=== PATIENT | male | born 1985 | race Caucasian/White ===

== ENCOUNTER 2018-04-03 19:06 | Inpatient (IN) | payer BC ==
[~2018-04-03] VITALS: Ht 177.8 cm; Wt 115.2 kg
[2018-04-03 19:06] VITALS: BP_SYST 200
[2018-04-03] MEDS ORDERED: PIPERACILLIN/TAZO 3.38 GM in NS 50 ML IV ONE (19:30)
[2018-04-03] MEDS ORDERED: NACL 0.9% 2,000 ML IV ONE (19:30)
[2018-04-03] MEDS ORDERED: ACETAMINOPHEN 500 MG TABLET PO ONE (19:45)
[2018-04-03] MEDS ORDERED: PIPERACILLIN/TAZOBACTAM 3.375 GM/VIAL (ZOSYN) IV ONE (20:00)
[2018-04-03 20:15] LABS: HEMATOCRIT 42.6 % (36-54); HEMOGLOBIN 14.8 g/dL (14.0-18.0); MEAN CORPUSCULAR HEMOGLOBIN 31 pg (27-31); MEAN CORPUSCULAR HGB CONC 35 % (32-36); MEAN CORPUSCULAR VOLUME 89 fL (79.0-98.0); RED BLOOD CELL COUNT(AUTO) 4.78 MIL/uL (4.2-6.2); RED CELL DISTRIBUTION WIDTH 12.3 % (9.0-15.0)
[2018-04-03 20:21] LABS: PLATELET COUNT (AUTO) 267 K/uL (130-430); WHITE BLOOD COUNT (AUTO) 20.3 K/uL (4.8-10.8)
[2018-04-03 20:25] LABS: CALCIUM 8.9 mg/dL (8.4-11.0); CREATININE 1.08 mg/dL (0.55-1.30)
[2018-04-03 20:26] LABS: PROTHROMBIN TIME 10.4 SECS (9.5-12.5)
[2018-04-03 20:28] LABS: POTASSIUM 2.8 mmol/L (3.5-5.1)
[2018-04-03 20:29] LABS: BAND % (MANUAL) 4 % (0-6); LYMPHOCYTES % (MANUAL) 13 % (20-46); TOTAL BILIRUBIN 1.6 mg/dL (0.0-1.0)
[2018-04-03 20:30] LABS: BASOPHILS % (MANUAL) 0 % (0-2); EOSINOPHILS % (MANUAL) 0 % (0-7); MONOCYTES % (MANUAL) 5 % (0-11)
[2018-04-03 20:41] LABS: BILIRUBIN,URINE 1+ (NEGATIVE); BLOOD, URINE 3+ (NEGATIVE); CLARITY/URINE CLEAR (CLEAR); COLOR,URINE AMBER (YELLOW); GLUCOSE,URINE NEGATIVE (NEGATIVE); KETONES,URINE TRACE (NEGATIVE); LEUKOCYTE ESTERASE ,URINE NEGATIVE (NEGATIVE); NITRITE, URINE NEGATIVE (NEGATIVE); PROTEIN URINE 2+ (NEGATIVE)
[2018-04-03 20:44] LABS: BACTERIA,URINE RARE /HPF (None Seen); WBC,URINE 0-3 /HPF (0-3)
[2018-04-03] MEDS ORDERED: KCL 40 mEq in 100 mL (PREMIX) 100 ML IV ONE ×2 (21:00→21:23)
[2018-04-03] MEDS ORDERED: KCL 20 mEq in 100 mL (PREMIX) 200 ML IV ONE (21:22)
[2018-04-03] MEDS ORDERED: MORPHINE 4 MG/ML INJ. SYRINGE IVP PRN ×2 (21:45→22:00)
[2018-04-03] MEDS ORDERED: NACL 0.9% 1,000 ML IV SCH (21:45)
[2018-04-03] MEDS ORDERED: PIPERACILLIN/TAZO 4.5GM/DEX-IS 100 ML IV SCH (22:00)
[2018-04-03] MEDS ORDERED: NACL 0.9% 1,000 ML IV ONE (22:00)
[2018-04-03 22:21] VITALS: BP_SYST 179
[2018-04-03] MEDS ORDERED: amLODIPine BESYLATE 10 MG TABLET PO ONE (23:45)
[2018-04-04] MEDS ORDERED: ACETAMINOPHEN 325 MG TABLET PO PRN
[2018-04-04] MEDS ORDERED: ONDANSETRON HCL 4 MG/2 ML VIAL IVP PRN
[2018-04-04] MEDS ORDERED: ALBUTEROL SULFATE 0.083% 2.5 MG/3 ML VIAL.NEB INH PRN
[2018-04-04] MEDS ORDERED: PIPERACILLIN/TAZOBACTAM 3.375 GM/VIAL (ZOSYN) IV ONE (00:10)
[2018-04-04] MEDS: PIPERACILLIN/TAZO 3.375/DEX-IS 50 ML IV SCH ×4 (01:04→20:15)
[2018-04-04] MEDS ORDERED: PIPERACILLIN/TAZO 3.375 GM in NS 50 ML IV SCH (04:00)
[2018-04-04 05:46] VITALS: BP_SYST 179
[2018-04-04 06:34] LABS: CALCIUM 8.6 mg/dL (8.4-11.0)
[2018-04-04 06:40] LABS: ALBUMIN 3.3 g/dL (3.4-4.8); TOTAL BILIRUBIN 1.3 mg/dL (0.0-1.0)
[2018-04-04 06:42] LABS: BASOPHILS # (AUTO) 0.1 K/uL (0.0-0.2); BASOPHILS % (AUTO) 0.4 % (0.0-2.0); EOSINOPHILS % (AUTO) 0.2 % (0.0-4.0); HEMATOCRIT 40.6 % (36-54); HEMOGLOBIN 13.8 g/dL (14.0-18.0); LYMPHOCYTES # (AUTO) 2.1 K/uL (1.0-5.5); LYMPHOCYTES % (AUTO) 13.4 % (20.5-51.5); MEAN CORPUSCULAR HEMOGLOBIN 30 pg (27-31); MEAN CORPUSCULAR HGB CONC 34 % (32-36); MEAN CORPUSCULAR VOLUME 89 fL (79.0-98.0); MONOCYTES # (AUTO) 1.6 K/uL (0.0-1.0); NEUTROPHILS # (AUTO) 12.1 K/uL (1.8-7.7); PLATELET COUNT (AUTO) 257 K/uL (130-430); RED BLOOD CELL COUNT(AUTO) 4.58 MIL/uL (4.2-6.2); RED CELL DISTRIBUTION WIDTH 12.8 % (9.0-15.0); WHITE BLOOD COUNT (AUTO) 15.9 K/uL (4.8-10.8)
[2018-04-04 08:00] VITALS: BP_SYST 162
[2018-04-04] MEDS: NACL 0.9% 1,000 ML IV SCH ×2 (09:02→20:15)
[2018-04-04] MEDS: hydrALAZINE HCL 25 MG TABLET PO PRN ×2 (09:03→16:14)
[2018-04-04 12:00] VITALS: BP_SYST 166
[2018-04-04] MEDS ORDERED: amLODIPine BESYLATE 10 MG TABLET PO ONE (13:15)
[2018-04-04] MEDS ORDERED: CARVEDILOL 6.25 MG TABLET (COREG) PO ONE (13:30)
[2018-04-04 16:00] VITALS: BP_SYST 170
[2018-04-04 20:00] VITALS: BP_SYST 165
[2018-04-04] MEDS: CARVEDILOL 6.25 MG TABLET (COREG) PO SCH (20:16)
[2018-04-04] MEDS ORDERED: hydrALAZINE HCL 25 MG TABLET PO ONE (22:15)
[2018-04-05] VITALS: BP_SYST 155
[2018-04-05] MEDS: PIPERACILLIN/TAZO 3.375/DEX-IS 50 ML IV SCH ×4 (02:04→20:08)
[2018-04-05] MEDS: hydrALAZINE HCL 25 MG TABLET PO PRN ×2 (02:43→16:26)
[2018-04-05] MEDS: NACL 0.9% 1,000 ML IV SCH ×3 (05:51→14:54)
[2018-04-05 06:18] LABS: BASOPHILS # (AUTO) 0.1 K/uL (0.0-0.2); BASOPHILS % (AUTO) 0.5 % (0.0-2.0); EOSINOPHILS # (AUTO) 0.2 K/uL (0.0-0.4); EOSINOPHILS % (AUTO) 1.8 % (0.0-4.0); HEMATOCRIT 42.6 % (36-54); HEMOGLOBIN 14.5 g/dL (14.0-18.0); LYMPHOCYTES # (AUTO) 2.4 K/uL (1.0-5.5); LYMPHOCYTES % (AUTO) 23.1 % (20.5-51.5); MEAN CORPUSCULAR HEMOGLOBIN 31 pg (27-31); MEAN CORPUSCULAR HGB CONC 34 % (32-36); MEAN CORPUSCULAR VOLUME 90 fL (79.0-98.0); MONOCYTES # (AUTO) 0.9 K/uL (0.0-1.0); MONOCYTES % (AUTO) 8.1 % (1.7-9.3); NEUTROPHILS % (AUTO) 66.5 % (40.0-70.0); PLATELET COUNT (AUTO) 267 K/uL (130-430); RED BLOOD CELL COUNT(AUTO) 4.73 MIL/uL (4.2-6.2); RED CELL DISTRIBUTION WIDTH 12.4 % (9.0-15.0); WHITE BLOOD COUNT (AUTO) 10.6 K/uL (4.8-10.8)
[2018-04-05 06:21] LABS: CALCIUM 8.7 mg/dL (8.4-11.0); POTASSIUM 3.1 mmol/L (3.5-5.1)
[2018-04-05 06:31] LABS: ALBUMIN 3.3 g/dL (3.4-4.8); TOTAL BILIRUBIN 0.9 mg/dL (0.0-1.0)
[2018-04-05 08:00] VITALS: BP_SYST 157
[2018-04-05] MEDS: CARVEDILOL 6.25 MG TABLET (COREG) PO SCH ×2 (08:39→20:08)
[2018-04-05] MEDS ORDERED: POTASSIUM CHLORIDE 20 MEQ TAB.PRT.SR PO ONE (10:00)
[2018-04-05 11:34] VITALS: BP_SYST 147
[2018-04-05 16:01] VITALS: BP_SYST 162
[2018-04-05 20:00] VITALS: BP_SYST 176
[2018-04-05 23:21] VITALS: BP_SYST 148
[2018-04-06] MEDS: NACL 0.9% 1,000 ML IV SCH ×4 (01:02→20:18)
[2018-04-06] MEDS: PIPERACILLIN/TAZO 3.375/DEX-IS 50 ML IV SCH ×4 (01:03→20:18)
[2018-04-06 07:30] VITALS: BP_SYST 158
[2018-04-06] MEDS: CARVEDILOL 6.25 MG TABLET (COREG) PO SCH ×2 (08:15→20:20)
[2018-04-06] MEDS ORDERED: LISINOPRIL 20 MG TABLET PO ONE (10:30)
[2018-04-06 12:30] VITALS: BP_SYST 151
[2018-04-06 12:32] LABS: CALCIUM 9.1 mg/dL (8.4-11.0); CREATININE 0.85 mg/dL (0.55-1.30); POTASSIUM 3.5 mmol/L (3.5-5.1)
[2018-04-06 16:56] VITALS: BP_SYST 154
[2018-04-06 20:00] VITALS: BP_SYST 196
[2018-04-06] MEDS: hydrALAZINE HCL 25 MG TABLET PO PRN (20:26)
[2018-04-06 21:30] VITALS: BP_SYST 149
[2018-04-07 00:28] VITALS: BP_SYST 128
[2018-04-07] MEDS: PIPERACILLIN/TAZO 3.375/DEX-IS 50 ML IV SCH ×3 (01:36→12:20)
[2018-04-07 07:30] VITALS: BP_SYST 149
[2018-04-07] MEDS: CARVEDILOL 6.25 MG TABLET (COREG) PO SCH (08:08)
[2018-04-07] MEDS ORDERED: LISINOPRIL 20 MG TABLET PO SCH (09:00)
[2018-04-07] MEDS: NACL 0.9% 1,000 ML IV SCH (09:00)
[2018-04-07 10:29] VITALS: BP_SYST 151
[2018-04-07 12:00] VITALS: BP_SYST 162
[2018-04-07] MEDS: hydrALAZINE HCL 25 MG TABLET PO PRN (12:34)
[2018-04-07 13:40] VITALS: BP_SYST 151
[2018-04-07] MEDS ORDERED: LEVO250T2 PO (13:43)
[2018-04-07] MEDS ORDERED: METR500T PO ×2 (13:45→13:47)
[2018-04-07] MEDS ORDERED: AMLO5TAB4 PO (13:48)
[2018-04-07] MEDS ORDERED: LISI-600 PO (13:48)
== END 2018-04-07 15:15 | disposition home or self-care (01) | DRG 392 ==
LOC: SED 19:06 → SMU 21:45
PROVIDERS: ADMIT Internal Medicine; ATTEND Internal Medicine
DX: K57.32 Diverticulitis of large intestine without perforation or abscess without bleeding (principal); I10 Essential (primary) hypertension; E87.6 Hypokalemia; K76.0 Fatty (change of) liver, not elsewhere classified
CPT/HCPCS: 36415; 71045; 80048; 80053; 81000-TC; 83605; 83690-TC; 85007; 85025; 85027; 85610-TC; 87040-TC; 90656; 93005; 96360; 99285; J2270; J2543; J3480; J7030